=== PATIENT | female | born 1990 | race Caucasian/White ===

== ENCOUNTER 2017-02-06 12:30 | Emergency (ER) | payer MEDICAID, MEDICARE ==
[~2017-02-06] VITALS: Ht 160 cm; Wt 78.5 kg
[2017-02-06 12:30] VITALS: BP_SYST 117
--- NOTE | 2017-02-06 12:30 | NUR ---
Note vernon in EDM - 02/06/17 at 1603 by SIHRLEY Pt report received from ALLIE Pyle. Pt here with moist cough and sore throat x 1 week. Airway patent, respirations even and non-labored, BBS clear.
--- NOTE | 2017-02-06 12:30 | NUR ---
Patient triaged and placed in waiting room. VSS and patient appears in no acute distress at this time. Accompanied by ASSEMBLER BONDING, awaiting available bed, and MD notified of need for MSE.
[2017-02-06] MEDS ORDERED: IPRATROPIUM/ALBUTEROL SULFATE 3 ML AMPUL.NEB INH ONE (15:45)
[2017-02-06] MEDS ORDERED: DEXAMETHASONE SOD PHOSPHATE 10 MG/ML VIAL IM ONE (15:45)
--- NOTE | 2017-02-06 15:50 | NUR ---
Pt placed to ER bed 02, to gown. Pt report received from ALLIE Pyle. Pt here with moist cough and sore throat x 1 week. Airway patent, respirations even and non-labored, BBS clear.
--- NOTE | 2017-02-06 15:55 | NUR ---
Dr. Ordaz at bedside to assess pt.
--- NOTE | 2017-02-06 16:00 | NUR ---
RT at bedside. Neb tx IP.
[2017-02-06] MEDS ORDERED: AMOXICILLIN/CLAVULANATE POTASSIUM 875 MG TABLET PO ONE (16:15)
[2017-02-06 16:25] VITALS: BP_SYST 118
--- NOTE | 2017-02-06 16:25 | NUR ---
Patient given written and verbal discharge instructions and verbalizes understanding. ER MD discussed with patient the results and treatment provided. Patient in stable condition. ID arm band removed. Rx of Motrin, Prednisone, Tessalon Pearls, Augmentin given. Patient educated on pain management and to follow up with PMD. Pain Scale 0/10. Opportunity for questions provided and answered.
== END 2017-02-06 16:25 | disposition home or self-care (01) ==
LOC: SED 12:30
DX: J01.90 Acute sinusitis, unspecified (principal)
CPT/HCPCS: 36415; 71020; 81025; 86403; 87081; 94640; 96372; 99285; J1100